=== PATIENT | female | born 1970 | race Caucasian/White ===

== ENCOUNTER 2021-09-11 08:32 | Emergency (ER) | payer OTHER, SELFPAY ==
[2021-09-11 08:33] VITALS: BP 139/87; PULSE 85; RESP 16; TEMP 36.9; O2SAT 98; BMI 32.8
--- NOTE | 2021-09-11 09:04 | [facility].EDNVD ---
ED Disposition Clinical Impression: Gastroenteritis Disposition: Home, Self-Care Condition on Discharge: Good Instructions: Viral Gastroenteritis Additional Instructions: Please follow up with your primary care physician in 2-3 days for further management. You have been given zofran to take scheduled every 8 hours for the next 2 days and then as needed. Please continue to drink plenty of water and eat 3 balanced meals. Please return if unable to eat and drink Prescriptions: Ondansetron [Zofran 4mg ODT] 4 mg PO TIDP PRN #20 tab PRN Reason: Vomiting Prescription Printed Referrals: Nasim Mims JR, MD [Primary Care Provider] - Forms: Work/School Release Time of Disposition: 10:05 - Critical Care Critical Care Time: No Attestation: On 09/11/21, the high probability of a clinically significant, sudden or life threatening deterioration of the following system(s) required my full and direct attention, intervention and personal management. The time I documented below is in addition to time spent performing reported procedures but includes the following listed in this critical care notation. Medical Decision Making - Medical Records Medical records reviewed: Yes: I reviewed the patient's medical records. - Fabián Inquiry Pt receiving controlled substance: No Vital Signs: 09/11/21 08:33 Temperature 98.5 F Temperature Source Oral Pulse Rate [Radial] 85 Respiratory Rate 16 Blood Pressure [Right Arm] 139/87 Blood Pressure Mean [Right Arm] 104 Blood Pressure Position [Right Arm] Sitting 02 Sat by Pulse Oximetry 98 Oxygen Delivery Method Room Air - Lab Data Lab results reviewed: Yes: I reviewed the patient's lab results. Lab Results 09/11/21 08:58: WBC 12.2 H, RBC 5.28, Hgb 14.4, Hct 43.6, MCV 82.5, MCH 27.4, MCHC 33.2, RDW 15.7, Plt Count 406, MPV 7.9, Neut % (Auto) 89.8 H, Lymph % (Auto) 6.3 L, [place] % (Auto) 1.7, Eos % (Auto) 1.4, Baso % (Auto) 0.9, Neut # (Auto) 11.0 H, Lymph # (Auto) 0.8, [place] # (Auto) 0.2, Eos # (Auto) 0.2, Baso # (Auto) 0.1, Total Counted 100, Neutrophils % (Manual) 92 H, Lymphocytes % (Manual) 5 L, Monocytes % (Manual) 2, Eosinophils % (Manual) 1, Platelet Estimate Normal 09/11/21 08:58: Sodium 133 L, Potassium 3.1 L, Chloride 101, Carbon Dioxide 26, Anion Gap 9.1, BUN 24 H, Creatinine 0.70, Estimated Creat Clear 130, Estimated GFR 89, Est GFR ( Amer) 108, Glucose 122 H, Calcium 8.1 L, Total Bilirubin 2.0 H, AST 62 H, ALT 57, Alkaline Phosphatase 127 H, Total Protein 8.0, Albumin 4.6, Globulin 3.4 H, Albumin/Globulin Ratio 1.4 09/11/21 08:58: Lipase 46 09/11/21 09:38: Urine Color Yellow, Urine Appearance Clear, Urine pH 6.5, Ur Specific [place] 1.020, Urine Protein Negative, Urine Glucose (UA) Negative, Urine Ketones Negative, Urine Blood Negative, Urine Nitrate Negative, Urine Bilirubin Negative, Urine Urobilinogen 0.2, Ur Leukocyte Esterase Negative, Urine WBC Occasional, Ur Squamous Epith Cells Occasional, Urine Bacteria 1+, Urine Mucus 2+ Result diagrams: 09/11/21 08:58 09/11/21 08:58 Orders (Tests/Meds): ED MEDICATIONS Discontinued Medications Generic Name Dose Route Start Last Admin Trade Name Freq PRN Reason Stop Dose Admin Lactated Ringer's 1,000 mls @ 999 mls/hr 09/11/21 08:45 09/11/21 09:12 Lactated Ringer's 1000 Ml Bag IV 09/11/21 09:45 999 mls/hr .Q1H1M JOSÉ MIGUEL Administration Ondansetron HCl 4 mg 09/11/21 08:49 09/11/21 09:12 Ondansetron 4mg/2ml Vial IV 09/11/21 08:50 4 mg ONCE ONE Administration Potassium Chloride 40 meq 09/11/21 09:30 09/11/21 10:15 Potassium Chloride 20meq Tab PO 09/11/21 09:31 40 meq ONCE ONE Administration Medical Decision Narrative: Miss zuñiga is a 50 yo female w/ no significant PMH who presents to the ED for N/V diarrhea and epigastric pain. Patient is afebrile and hemodynamically stable on arrival. Prior hysterectomy. Patient physical exam benign, abdomen is mildly tender, non peritonitic no
[2021-09-11 09:10] LABS: Chloride 101 mmol/L (98-107); Potassium 3.1 mmoL/L (3.5-5.1); Sodium 133 mmol/L (136-145)
[2021-09-11 09:12] LABS: Lipase 46 U/L (23-300)
[2021-09-11 09:13] LABS: Alanine Aminotransferase 57 U/L (12-78); Albumin Level 4.6 g/dl (3.5-5.0); Albumin/Globulin Ratio 1.4 (1.1-1.8); Alkaline Phosphatase 127 U/L (38-126); Anion Gap 9.1 mEq/L (5-15); Aspartate Amino Transferase 62 U/L (14-36); Basophils # 0.1 K/mm3 (0-0.2); Basophils % 0.9 % (0.1-2.0); Blood Urea Nitrogen 24 mg/dl (7-17); Calcium 8.1 mg/dl (8.4-10.2); Carbon Dioxide 26 mmol/L (22.0-30.0); Creatinine Clearance Estimated 130 mL/min (50-200); Eosinophils # 0.2 K/mm3 (0.0-0.4); Eosinophils % 1.4 % (0.1-12.0); Estimated Glomerular Filt Rate 89 ml/min (>60); GFR (African American) 108 ML/MIN (>60); Globulin 3.4 g/dL (1.3-3.2); Glucose 122 mg/dl (74-100); Hematocrit 43.6 % (37.0-47.0); Hemoglobin 14.4 g/dL (12.2-16.2); Lymphocytes # 0.8 K/mm3 (0.7-4.5); Lymphocytes % 6.3 % (10-50); Mean Corpuscular HGB Conc 33.2 g/dL (31.8-35.4); Mean Corpuscular Hemoglobin 27.4 pg (27.0-31.2); Mean Corpuscular Volume 82.5 fl (81-99); Mean Platelet Volume 7.9 fl (7.4-10.4); Monocytes # 0.2 K/mm3 (0.1-1.0); Monocytes % 1.7 % (1.7-9.3); Neutrophils % 89.8 % (37.0-80.0); Platelet Count 406 K/mm3 (142-424); Red Blood Count 5.28 M/mm3 (4.20-5.40); Red Cell Distribution Width 15.7 % (11.5-17.5); White Blood Count 12.2 K/mm3 (4.8-10.8)
[2021-09-11 09:21] LABS: MANUAL DIFFERENTIAL MANUAL DIFFERENTIAL (MANUAL DIFF)
--- NOTE | 2021-09-11 09:30 | PC.NURSE ---
Patient ambulatory to restroom
[2021-09-11 09:42] LABS: Microscopic, Urine URINE MICROSCOPIC (MICROSCOPIC)
[2021-09-11 09:47] LABS: Appearance,Urine CLEAR (Clear); Color,Urine YELLOW (Yellow); PH,Urine 6.5 (5.0-8.5)
[2021-09-11 09:48] LABS: Bilirubin,Urine Negative (Negative); Blood, Urine Negative (Negative); Glucose,Urine (UA) Negative (Negative); Ketones,Urine Negative (Negative); Leukocyte Esterase,Urine Negative (Negative); Nitrate,Urine Negative (Negative); Protein,Urine Negative (Negative); Urobilinogen,Urine 0.2 EU/dl (0.2)
[2021-09-11 10:04] LABS: Eosinophils % 1 % (0-3); Lymphocytes % 5 % (10-50); Monocytes % 2 % (2-9); Neutrophils % 92 % (42-76); Platelet Estimate Normal; Total Cells Counted 100
[2021-09-11 10:11] LABS: Bacteria,Urine 1+ /lpf; Mucus,Urine 2+ /lpf; Squamous Epithelial Cell,Urine Occasional #/hpf (0-5); WBC,Urine Occasional #/hpf (0-3)
[2021-09-11 10:23] VITALS: BP 125/68; PULSE 89; RESP 16; TEMP 36.6; O2SAT 98
== END 2021-09-11 10:24 | disposition home or self-care (01) ==
PROVIDERS: Emergency Provider Student in an Organized Health Care Education/Training Program; PCP Family Medicine
DX: K52.9 Noninfective gastroenteritis and colitis, unspecified (principal)
CPT/HCPCS: 80053; 81001; 83690; 85007; 85025; 96365; 96375; 99283; J2405